=== PATIENT | female | born 1960 | race African-American/Black ===

== ENCOUNTER 2016-12-03 21:02 | Emergency (ER) | payer OTHER ==
[~2016-12-03] VITALS: Ht 172.7 cm; Wt 75.0 kg
[2016-12-03 21:10] VITALS: BP 161/81; PULSE 60; RESP 18; TEMP 98.1; O2SAT 98
--- NOTE | 2016-12-03 21:39 | PD ---
HPI Chief Complaint: General Weakness Time Seen by Provider: 21:11 Travel History International Travel<30 days: No Contact w/Intl Traveler<30days: No Traveled to known affect area: No History of Present Illness HPI 56-year-old female complains of sweating, headache, shortness of breath, abdominal cramping. Patient states that the symptoms started about 2 hours prior to arrival. Patient states that she had menopause about 8 years ago. Patient states that she started having some vaginal spotting for the past week. Patient states that she has mild aching headache. Patient denies any visual change. Patient denies any neck pain. Patient denies any chest pain. Patient denies any coughing congestion fever chills. Patient states that she has mild intermittent abdominal cramping. Patient denies any nausea vomiting diarrhea. Patient denies any dysuria or frequency. Patient denies any back pain. Patient denies any focal weakness or numbness of extremity. Patient states that she has history of cocaine abuse. Last cocaine use was yesterday. PFSH Past Medical History Medical History: Denies Significant Hx Tetanus Vaccination: > 5 Years Influenza Vaccination: No Menopausal: Yes : 3 Para: 2 Miscarriage: 1 Past Surgical History Section: Yes (X2) Social History Alcohol Use: Yes Tobacco Use: Yes Substance Use: Yes (COCAINE) Allergies-Medications (Allergen,Severity, Reaction): Coded Allergies: No Known Allergies (Unverified , 12/03/16) Review of Systems General / Constitutional: No: Fever Eyes: No: Visual changes HENT: Positive: Headaches Cardiovascular: No: Chest Pain or Discomfort Respiratory: Positive: Shortness of Breath Gastrointestinal: Positive: Abdominal Pain Genitourinary: No: Dysuria Musculoskeletal: No: Pain Skin: No Rash Neurologic: No: Weakness Psychiatric: No: Depression Endocrine: No: Polydipsia Hematologic/Lymphatic: No: Easy Bruising Physical Exam Narrative GENERAL: Well-nourished, well-developed patient. SKIN: Focused skin assessment warm/dry. HEAD: Normocephalic. EYES: No scleral icterus. No injection or drainage. NECK: Supple, trachea midline. No JVD or lymphadenopathy. CARDIOVASCULAR: Regular rate and rhythm without murmurs, gallops, or rubs. RESPIRATORY: Breath sounds equal bilaterally. No accessory muscle use. GASTROINTESTINAL: Abdomen soft, nondistended. Patient has mild diffuse tenderness over the abdomen. No rebound tenderness. No mass. MUSCULOSKELETAL: No cyanosis, or edema. BACK: Nontender without obvious deformity. No CVA tenderness. Neurologic exam normal. Data Data Last Documented VS Vital Signs Date Time Temp Pulse Resp B/P Pulse Ox O2 Delivery O2 Flow Rate FiO2 12/03/16 21:14 60 18 98 12/03/16 21:10 98.1 161/81 Orders Electrocardiogram (12/03/16:) Complete Blood Count With Diff (12/03/16:) Comprehensive Metabolic Panel (12/03/16:) Prothrombin Time / Inr (Pt) (12/03/16:) Act Partial Throm Time (Ptt) (12/03/16:) Lipase (12/03/16:) Urinalysis - C+S If Indicated (12/03/16:) Chest, Single Ap (12/03/16:) Iv Access Insert/Monitor (12/03/16:) Labs Laboratory Tests Test 12/03/16 12/03/16 21:35 22:03 White Blood Count 7.3 TH/MM3 Red Blood Count 4.00 MIL/MM3 Hemoglobin 13.1 GM/DL Hematocrit 39.2 % Mean Corpuscular Volume 98.1 FL Mean Corpuscular Hemoglobin 32.8 PG Mean Corpuscular Hemoglobin 33.5 % Concent Red Cell Distribution Width 13.7 % Platelet Count 153 TH/MM3 Mean Platelet Volume 10.5 FL Neutrophils (%) (Auto) 74.2 % Lymphocytes (%) (Auto) 18.0 % Monocytes (%) (Auto) 5.3 % Eosinophils (%) (Auto) 2.1 % Basophils (%) (Auto) 0.4 % Neutrophils # (Auto) 5.4 TH/MM3 Lymphocytes # (Auto) 1.3 TH/MM3 Monocytes # (Auto) 0.4 TH/MM3 Eosinophils # (Auto) 0.2 TH/MM3 Basophils # (Auto) 0.0 TH/MM3 CBC Comment DIFF FINAL Differential Comment Prothrombin Time 10.9 SEC Prothromb Time International 1.0 RATIO Ratio Activated Partial 35.1 SEC Thromboplast Time Sodium Level 141 MEQ/L Potassium Level 5.6 MEQ/L Chloride Level 110 MEQ/L Carbon Dioxide Level 24.0 MEQ/L Anion Gap 7 MEQ/L Blood Urea Nitrogen 11 MG/DL Creatinine 0.90 MG/DL Estimat Glomerular Filtration 64 ML/MIN Rate Random Glucose 93 MG/DL Calcium Level 8.8 MG/DL Total Bilirubin 0.4 MG/DL Aspartate Amino Transf 47 U/L (AST/SGOT) Alanine Aminotransferase 19 U/L (ALT/SGPT) Alkaline Phosphatase 65 U/L Total Protein 7.5 GM/DL Albumin 3.2 GM/DL Lipase 92 U/L Urine Color YELLOW Urine Turbidity CLEAR Urine pH 6.5 Urine Specific [place] 1.015 Urine Protein NEG mg/dL Urine Glucose (UA) NEG mg/dL Urine Ketones 10 mg/dL Urine Occult Blood NEG Urine Nitrite NEG Urine Bilirubin NEG Urine Urobilinogen LESS THAN 2.0 MG/DL Urine Leukocyte Esterase TRACE Urine RBC 2 /hpf Urine WBC 2 /hpf Urine Squamous Epithelial <1 /hpf Cells Microscopic Urinalysis Comment CULT NOT INDICATED MDM Medical Decision Making Medical Screen Exam Complete: Yes Emergency Medical Condition: Yes Interpretation(s) Last Impressions Chest X-Ray 12/03/162126 Signed Impressions: Service Date/Time: November 21:53 - CONCLUSION: No acute disease. King Diaz MD 23:24 PM. CBC within normal limit. WBC 7.3. 74 neutrophil. Potassium 5.6. Slight hemolysis noted. AST 47. UA is negative. Differential Diagnosis Differential diagnosis including vasovagal reaction, viral syndrome, bronchitis , pneumonia, UTI, sepsis. Narrative Course 56-year-old female with headache, shortness of breath, abdominal cramping, sweating. Patient states that the symptoms started about 2 hours prior to arrival. Diagnosis Primary Impression: Viral syndrome Patient Instructions: General Instructions Additional Instructions: Tylenol as needed. Follow-up with personal physician. Return as needed. Return if persistent problem or worse. Med/Other Pt SpecificInfo: No Meds Exist/No RX given Disposition: [address] LAW ENFORCEMNT Condition: Stable Farhad Hale MD December 03, 2016 21:39 Farhad Hale MD December 03, 2016 21:39
[2016-12-03 21:55] LABS: AUTOMATED NEUTROPHIL # 5.4 TH/MM3 (1.8-7.7); BASOPHIL % 0.4 % (0.0-2.0); EOSINOPHIL # 0.2 TH/MM3 (0-0.4); EOSINOPHIL % 2.1 % (0.0-4.0); HEMATOCRIT 39.2 % (35.0-46.0); HEMO FLAGS DIFF FINAL; LYMPHOCYTE # 1.3 TH/MM3 (1.0-4.8); MEAN CELL VOLUME 98.1 FL (80.0-100.0); MEAN CORPUSCULAR HEMOGLOBIN 32.8 PG (27.0-34.0); MEAN CORPUSCULAR HGB CONC 33.5 % (32.0-36.0); MONO % 5.3 % (0.0-8.0); NEUT % 74.2 % (16.0-70.0); PLATELET COUNT 153 TH/MM3 (150-450); RED CELL DISTRIBUTION WIDTH 13.7 % (11.6-17.2); WHITE BLOOD COUNT 7.3 TH/MM3 (4.0-11.0)
[2016-12-03 22:03] LABS: PROTHROMBIN TIME - PATIENT 10.9 SEC (9.8-11.6)
--- NOTE | 2016-12-03 22:06 | RADRPT ---
EXAM DATE/TIME: 12/03/2016 21:53 [facility] COMPARISON: No previous studies available for comparison. INDICATIONS : Shortness of breath. MEDICAL HISTORY : None. SURGICAL HISTORY : None. ENCOUNTER: Initial ACUITY: 1 day PAIN SCORE: 0/10 LOCATION: Bilateral chest FINDINGS: A single view of the chest demonstrates the lungs to be symmetrically aerated without evidence of mas s, infiltrate or effusion. The cardiomediastinal contours are unremarkable. Osseous structures are intact. CONCLUSION: No acute disease. King Diaz MD on December 03, 2016 at 22:04 Board Certified Radiologist. This report was verified electronically.
[2016-12-03 22:09] LABS: ANION GAP 7 MEQ/L (5-15); AST (GOT) 47 U/L (15-37); BLOOD UREA NITROGEN 11 MG/DL (7-18); CHLORIDE 110 MEQ/L (98-107); GLOMERULAR FILTRATION RATE 64 ML/MIN (>89); SODIUM (NA) 141 MEQ/L (136-145)
[2016-12-03 22:18] LABS: ALKALINE PHOSPHATASE 65 U/L (45-117); ALT (GPT) 19 U/L (10-53); TOTAL BILIRUBIN ADULT 0.4 MG/DL (0.2-1.0)
[2016-12-03 22:28] LABS: BLOOD, URINE NEG (NEG); GLUCOSE,URINE NEG (NEG); KETONE, URINE 10 mg/dL (NEG); NITRITE,URINE NEG (NEG); PH, URINE 6.5 (5.0-8.5); SQUAMOUS EPITHELIAL CELL URINE <1 /hpf (0-5); URINE COLOR YELLOW (YELLW/STRAW)
[2016-12-03 22:29] LABS: POTASSIUM 5.6 MEQ/L (3.5-5.1)
[2016-12-03 22:29] LABS: COMMENT (UR) CULT NOT INDICATED; CULTURE IF INDICATED CULT NOT INDICATED
[2016-12-03 22:42] LABS: APTT (PATIENT) 35.1 SEC (24.3-30.1)
[2016-12-03 23:41] VITALS: BP 145/95; PULSE 86; RESP 18; O2SAT 100
== END 2016-12-03 23:52 ==
LOC: NEPC 21:02
DX: B34.9 Viral infection, unspecified (principal); F14.10 Cocaine abuse, uncomplicated; Z72.0 Tobacco use
CPT/HCPCS: 71010; 80053; 81001; 83690; 85025; 85610; 85730; 99285